=== PATIENT | female | born 1980 | race African-American/Black ===

== ENCOUNTER 2021-08-26 15:30 | Inpatient (IN) | payer BC, OTHER ==
[2021-08-26 19:24] VITALS: BMI 31.8
[2021-08-26] MEDS ORDERED: ACETAMINOPHEN 325 MG TABLET (FP) PO PRN ×2 (20:14)
[2021-08-26] MEDS ORDERED: IBUPROFEN 400 MG TABLET (FP) PO PRN (20:14)
[2021-08-26] MEDS ORDERED: MAG HYDROX/AL HYDROX/SIMETH 30 ML UNIT-DOSE CUP PO PRN (20:14)
[2021-08-26] MEDS ORDERED: hydrOXYzine PAMOATE 25 MG CAPSULE (FP) PO PRN (20:14)
[2021-08-26] MEDS ORDERED: MENTHOL/PHENOL 1 EACH UD MM PRN (20:14)
[2021-08-26] MEDS ORDERED: MAGNESIUM HYDROX 2400MG/30ML ORAL SUSPENSION 30 ML CUP PO PRN (20:14)
[2021-08-26] MEDS ORDERED: guaiFENesin 200 MG/10 ML 10 ML UNIT-DOSE CUPS PO PRN (20:14)
[2021-08-26] MEDS ORDERED: LOPERAMIDE HCL 2 MG CAPSULE PO PRN (20:14)
[2021-08-26] MEDS ORDERED: DICYCLOMINE HCL 10 MG CAPSULE PO PRN (20:14)
[2021-08-26] MEDS ORDERED: BISMUTH SUBSALICYLATE 524 MG/30 ML PO PRN (20:14)
[2021-08-26] MEDS ORDERED: ONDANSETRON *ODT* 4 MG TABLET SL PRN (20:14)
[2021-08-26] MEDS ORDERED: P-EPHED 60MG/TRIPROLIDI 2.5MG TABLET PO PRN (20:14)
[2021-08-26] MEDS ORDERED: NICOTINE 10 MG CARTRIDGE (INHALER) IH PRN (20:14)
[2021-08-26] MEDS ORDERED: METHOCARBAMOL 500 MG TABLET PO PRN (20:14)
[2021-08-26] MEDS ORDERED: MAGNESIUM CITRATE 300 ML BOTTLE PO PRN (20:14)
[2021-08-27] MEDS: MELATONIN 5 MG TABLETS PO SCH ×2 (00:51→22:18)
[2021-08-27] MEDS: THIAMINE HCL 100 MG TABLET (FP) PO SCH ×2 (00:51→22:18)
[2021-08-27] MEDS: PRENATAL VITAMINS W/ FOLIC ACID TABLET (FP) PO SCH (10:36)
[2021-08-27] MEDS: NICOTINE 14 MG/24 HOURS TOPICAL PATCH TD SCH (10:38)
[2021-08-27 12:19] LABS: HEMATOCRIT 37.8 % (32.4-45.2); HEMOGLOBIN 12.8 GM/dL (10.7-15.3); MCH 28.7 pg (25.7-33.7); MCHC 33.7 g/dl (32.0-36.0); MEAN CELL VOLUME 85.2 fl (80-96); PLATELET COUNT 218 10^3/uL (134-434); RBC 4.44 M/mm3 (3.60-5.2); RDW 14.1 % (11.6-15.6); WHITE BLOOD COUNT 6.4 K/mm3 (4.0-10.0)
[2021-08-27 12:40] LABS: CALCIUM 9.1 mg/dL (8.5-10.1)
[2021-08-27 12:41] LABS: ALBUMIN 3.3 g/dl (3.4-5.0); BLOOD UREA NITROGEN 9.8 mg/dL (7-18)
[2021-08-27 12:46] LABS: BILIRUBIN,TOTAL 0.4 mg/dL (0.2-1)
[2021-08-27] MEDS ORDERED: DIVALPROEX SODIUM 500 MG TABLET E.C. PO SCH (22:00)
[2021-08-27] MEDS: HALOPERIDOL 5 MG TABLET PO SCH (23:43)
[2021-08-28 06:06] LABS: SARS-CoV-2 NAA Not Detected (Not Detected)
[2021-08-28 08:57] VITALS: BP 102/64; PULSE 73; TEMP 97.1
[2021-08-28] MEDS ORDERED: DIVALPROEX SODIUM 250 MG TABLET E.C. PO SCH (10:00)
[2021-08-28] MEDS: PRENATAL VITAMINS W/ FOLIC ACID TABLET (FP) PO SCH (10:19)
[2021-08-28] MEDS: HALOPERIDOL 5 MG TABLET PO SCH (10:19)
[2021-08-28] MEDS: NICOTINE 14 MG/24 HOURS TOPICAL PATCH TD SCH (10:19)
== END 2021-08-28 10:33 | disposition other institution (70) | DRG 897 ==
LOC: YASAS 15:30 → Y3N 22:41
PROVIDERS: ADMIT Allergy & Immunology; ATTEND Allergy & Immunology
PROC: HZ2ZZZZ Detoxification Services for Substance Abuse Treatment (ICD-10-PCS; principal; 2021-08-26)
DX: F10.230 Alcohol dependence with withdrawal, uncomplicated (principal); F14.20 Cocaine dependence, uncomplicated; F12.20 Cannabis dependence, uncomplicated; F17.210 Nicotine dependence, cigarettes, uncomplicated; F25.0 Schizoaffective disorder, bipolar type; F19.24 Other psychoactive substance dependence with psychoactive substance-induced mood disorder; Z88.8 Allergy status to other drugs, medicaments and biological substances; Z56.0 Unemployment, unspecified
CPT/HCPCS: 36415; 80053; 80164; 85027; 86780; 93005; 93010; C9803; U0003; U0005

== ENCOUNTER 2021-08-28 11:49 | Inpatient (IN) | payer BC, OTHER ==
[2021-08-28] MEDS ORDERED: MAG HYDROX/AL HYDROX/SIMETH 30 ML UNIT-DOSE CUP PO PRN (14:52)
[2021-08-28] MEDS ORDERED: ACETAMINOPHEN 325 MG TABLET (FP) PO PRN (14:52)
[2021-08-28] MEDS ORDERED: MAGNESIUM CITRATE 300 ML BOTTLE PO PRN (14:52)
[2021-08-28] MEDS ORDERED: MENTHOL/PHENOL 1 EACH UD MM PRN (14:52)
[2021-08-28] MEDS ORDERED: IBUPROFEN 400 MG TABLET (FP) PO PRN (14:52)
[2021-08-28] MEDS ORDERED: guaiFENesin 200 MG/10 ML 10 ML UNIT-DOSE CUPS PO PRN (14:52)
[2021-08-28] MEDS ORDERED: P-EPHED 60MG/TRIPROLIDI 2.5MG TABLET PO PRN (14:52)
[2021-08-28] MEDS ORDERED: LOPERAMIDE HCL 2 MG CAPSULE PO PRN (14:52)
[2021-08-28] MEDS ORDERED: MAGNESIUM HYDROX 2400MG/30ML ORAL SUSPENSION 30 ML CUP PO PRN (14:52)
[2021-08-28] MEDS: hydrOXYzine PAMOATE 25 MG CAPSULE (FP) PO SCH ×2 (18:11→21:08)
[2021-08-28] MEDS: NICOTINE 10 MG CARTRIDGE (INHALER) IH PRN ×2 (18:17→22:28)
[2021-08-28] MEDS: THIAMINE HCL 100 MG TABLET (FP) PO SCH (21:08)
[2021-08-28] MEDS: HALOPERIDOL 5 MG TABLET PO SCH (21:08)
[2021-08-28] MEDS: DIVALPROEX SODIUM 500 MG TABLET E.C. PO SCH (21:08)
[2021-08-28] MEDS: MELATONIN 5 MG TABLETS PO SCH (21:08)
[2021-08-29] MEDS: hydrOXYzine PAMOATE 25 MG CAPSULE (FP) PO SCH ×5 (06:07→21:05)
[2021-08-29] MEDS: NICOTINE 10 MG CARTRIDGE (INHALER) IH PRN ×3 (09:06→21:07)
[2021-08-29] MEDS: PRENATAL VITAMINS W/ FOLIC ACID TABLET (FP) PO SCH (11:07)
[2021-08-29] MEDS: DIVALPROEX SODIUM 250 MG TABLET E.C. PO SCH (11:07)
[2021-08-29] MEDS: HALOPERIDOL 5 MG TABLET PO SCH ×2 (11:07→21:05)
[2021-08-29] MEDS: NICOTINE 7 MG/24 HOURS TOPICAL PATCH TD SCH (11:08)
[2021-08-29 13:11] LABS: HIV INTERPRETATION NEGATIVE (NEGATIVE)
[2021-08-29] MEDS: DIVALPROEX SODIUM 500 MG TABLET E.C. PO SCH (21:05)
[2021-08-29] MEDS: THIAMINE HCL 100 MG TABLET (FP) PO SCH (21:05)
[2021-08-29] MEDS: MELATONIN 5 MG TABLETS PO SCH (21:05)
[2021-08-30] MEDS: hydrOXYzine PAMOATE 25 MG CAPSULE (FP) PO SCH ×2 (06:45→11:17)
[2021-08-30] MEDS: PRENATAL VITAMINS W/ FOLIC ACID TABLET (FP) PO SCH (11:16)
[2021-08-30] MEDS: DIVALPROEX SODIUM 250 MG TABLET E.C. PO SCH (11:17)
[2021-08-30] MEDS: NICOTINE 7 MG/24 HOURS TOPICAL PATCH TD SCH (11:17)
[2021-08-30] MEDS: HALOPERIDOL 5 MG TABLET PO SCH ×2 (11:17→21:12)
[2021-08-30] MEDS: NICOTINE 10 MG CARTRIDGE (INHALER) IH PRN ×2 (12:22→18:08)
[2021-08-30] MEDS ORDERED: hydrOXYzine PAMOATE 25 MG CAPSULE (FP) PO PRN (12:43)
[2021-08-30] MEDS: MELATONIN 5 MG TABLETS PO SCH (21:12)
[2021-08-30] MEDS: cloZAPine 25 MG TABLET PO SCH (21:12)
[2021-08-30] MEDS: THIAMINE HCL 100 MG TABLET (FP) PO SCH (21:12)
[2021-08-30] MEDS: DIVALPROEX SODIUM 500 MG TABLET E.C. PO SCH (21:12)
[2021-08-31] MEDS: PRENATAL VITAMINS W/ FOLIC ACID TABLET (FP) PO SCH (10:38)
[2021-08-31] MEDS: DIVALPROEX SODIUM 250 MG TABLET E.C. PO SCH (10:38)
[2021-08-31] MEDS: NICOTINE 7 MG/24 HOURS TOPICAL PATCH TD SCH (10:38)
[2021-08-31] MEDS: HALOPERIDOL 5 MG TABLET PO SCH ×2 (10:38→22:12)
[2021-08-31 11:40] LABS: BASO % 0.8 % (0-2.0); EOS % 4.8 % (0-4.5); HEMATOCRIT 39.4 % (32.4-45.2); HEMOGLOBIN 13.3 GM/dL (10.7-15.3); LYMPH % 44.2 % (8-40); MCH 28.8 pg (25.7-33.7); MCHC 33.8 g/dl (32.0-36.0); MEAN CELL VOLUME 85.2 fl (80-96); MEAN PLT VOLUME 9.1 fl (7.5-11.1); MONO % 9.1 % (3.8-10.2); NEUT % 41.1 % (42.8-82.8); PLATELET COUNT 230 10^3/uL (134-434); RBC 4.62 M/mm3 (3.60-5.2); RDW 13.7 % (11.6-15.6); WHITE BLOOD COUNT 5.1 K/mm3 (4.0-10.0)
[2021-08-31] MEDS: NICOTINE 10 MG CARTRIDGE (INHALER) IH PRN (18:27)
[2021-08-31] MEDS: MELATONIN 5 MG TABLETS PO SCH (22:12)
[2021-08-31] MEDS: DIVALPROEX SODIUM 500 MG TABLET E.C. PO SCH (22:12)
[2021-08-31] MEDS: THIAMINE HCL 100 MG TABLET (FP) PO SCH (22:12)
[2021-08-31] MEDS: cloZAPine 25 MG TABLET PO SCH (22:13)
[2021-09-01] MEDS: DIVALPROEX SODIUM 250 MG TABLET E.C. PO SCH (10:53)
[2021-09-01] MEDS: HALOPERIDOL 5 MG TABLET PO SCH ×2 (10:53→22:13)
[2021-09-01] MEDS: NICOTINE 7 MG/24 HOURS TOPICAL PATCH TD SCH (10:53)
[2021-09-01] MEDS: PRENATAL VITAMINS W/ FOLIC ACID TABLET (FP) PO SCH (10:53)
[2021-09-01] MEDS: NICOTINE POLACRILEX 2 MG GUM BUC PRN ×3 (16:06→23:05)
[2021-09-01] MEDS: MELATONIN 5 MG TABLETS PO SCH (22:12)
[2021-09-01] MEDS: THIAMINE HCL 100 MG TABLET (FP) PO SCH (22:12)
[2021-09-01] MEDS: cloZAPine 25 MG TABLET PO SCH (22:13)
[2021-09-01] MEDS: DIVALPROEX SODIUM 500 MG TABLET E.C. PO SCH (22:13)
[2021-09-02] MEDS: PRENATAL VITAMINS W/ FOLIC ACID TABLET (FP) PO SCH (09:40)
[2021-09-02] MEDS: DIVALPROEX SODIUM 250 MG TABLET E.C. PO SCH (09:40)
[2021-09-02] MEDS: NICOTINE 7 MG/24 HOURS TOPICAL PATCH TD SCH (09:41)
[2021-09-02] MEDS: HALOPERIDOL 5 MG TABLET PO SCH ×2 (09:41→21:18)
[2021-09-02] MEDS: NICOTINE POLACRILEX 2 MG GUM BUC PRN ×4 (09:42→21:20)
[2021-09-02] MEDS: MELATONIN 5 MG TABLETS PO SCH (21:18)
[2021-09-02] MEDS: THIAMINE HCL 100 MG TABLET (FP) PO SCH (21:18)
[2021-09-02] MEDS: DIVALPROEX SODIUM 500 MG TABLET E.C. PO SCH (21:18)
[2021-09-03] MEDS: NICOTINE POLACRILEX 2 MG GUM BUC PRN ×3 (08:59→20:14)
[2021-09-03] MEDS: NICOTINE 7 MG/24 HOURS TOPICAL PATCH TD SCH (09:00)
[2021-09-03] MEDS: DIVALPROEX SODIUM 250 MG TABLET E.C. PO SCH (09:00)
[2021-09-03] MEDS: HALOPERIDOL 5 MG TABLET PO SCH ×2 (09:00→21:25)
[2021-09-03] MEDS: PRENATAL VITAMINS W/ FOLIC ACID TABLET (FP) PO SCH (09:01)
[2021-09-03] MEDS: DIVALPROEX SODIUM 500 MG TABLET E.C. PO SCH (21:23)
[2021-09-03] MEDS: THIAMINE HCL 100 MG TABLET (FP) PO SCH (21:24)
[2021-09-03] MEDS: MELATONIN 5 MG TABLETS PO SCH (21:24)
[2021-09-03] MEDS ORDERED: cloZAPine 25 MG TABLET PO SCH (22:00)
[2021-09-04] MEDS: HALOPERIDOL 5 MG TABLET PO SCH ×2 (09:10→21:15)
[2021-09-04] MEDS: NICOTINE 7 MG/24 HOURS TOPICAL PATCH TD SCH (09:10)
[2021-09-04] MEDS: DIVALPROEX SODIUM 250 MG TABLET E.C. PO SCH (09:10)
[2021-09-04] MEDS: PRENATAL VITAMINS W/ FOLIC ACID TABLET (FP) PO SCH (09:12)
[2021-09-04] MEDS: NICOTINE POLACRILEX 2 MG GUM BUC PRN ×5 (09:12→21:16)
[2021-09-04] MEDS: BENZTROPINE MESYLATE 1 MG TABLET PO SCH (21:14)
[2021-09-04] MEDS: DIVALPROEX SODIUM 500 MG TABLET E.C. PO SCH (21:15)
[2021-09-04] MEDS: THIAMINE HCL 100 MG TABLET (FP) PO SCH (21:15)
[2021-09-04] MEDS ORDERED: cloZAPine 100 MG TABLET PO ONE (22:00)
[2021-09-05 07:55] VITALS: TEMP 97.4
[2021-09-05] MEDS: DIVALPROEX SODIUM 250 MG TABLET E.C. PO SCH (10:51)
[2021-09-05] MEDS: HALOPERIDOL 5 MG TABLET PO SCH ×2 (10:51→21:12)
[2021-09-05] MEDS: BENZTROPINE MESYLATE 1 MG TABLET PO SCH ×2 (10:51→21:12)
[2021-09-05] MEDS: NICOTINE 7 MG/24 HOURS TOPICAL PATCH TD SCH (10:52)
[2021-09-05] MEDS: PRENATAL VITAMINS W/ FOLIC ACID TABLET (FP) PO SCH (10:52)
[2021-09-05] MEDS: NICOTINE POLACRILEX 2 MG GUM BUC PRN ×6 (10:53→22:30)
[2021-09-05 16:11] LABS: NORCLOZAPINE <20 ng/mL (Not Estab.)
[2021-09-05] MEDS: DIVALPROEX SODIUM 500 MG TABLET E.C. PO SCH (21:12)
[2021-09-05] MEDS: THIAMINE HCL 100 MG TABLET (FP) PO SCH (21:12)
[2021-09-05] MEDS ORDERED: traZODone HCL 50 MG TABLET (FP) PO SCH (22:00)
[2021-09-05] MEDS ORDERED: cloZAPine 25 MG TABLET PO SCH (22:00)
[2021-09-05 22:03] VITALS: BP 121/66; PULSE 77
[2021-09-06] MEDS ORDERED: cloZAPine 25 MG TABLET PO SCH
[2021-09-06] MEDS: HALOPERIDOL 5 MG TABLET PO SCH (09:43)
[2021-09-06] MEDS: PRENATAL VITAMINS W/ FOLIC ACID TABLET (FP) PO SCH (09:43)
[2021-09-06] MEDS: BENZTROPINE MESYLATE 1 MG TABLET PO SCH (09:43)
[2021-09-06] MEDS: DIVALPROEX SODIUM 250 MG TABLET E.C. PO SCH (09:43)
[2021-09-06] MEDS: NICOTINE POLACRILEX 2 MG GUM BUC PRN ×2 (09:44→12:45)
[2021-09-06] MEDS: NICOTINE 7 MG/24 HOURS TOPICAL PATCH TD SCH (09:45)
[2021-09-06] MEDS ORDERED: CLOZAPINE 25 MG PO SCH (22:00)
== END 2021-09-06 13:15 | disposition left against medical advice (07) | DRG 894 ==
LOC: YASAS 11:49 → Y5N 11:50
PROVIDERS: ADMIT Allergy & Immunology; ATTEND Allergy & Immunology
PROC: HZ42ZZZ Group Counseling for Substance Abuse Treatment, Cognitive-Behavioral (ICD-10-PCS; principal; 2021-08-28)
DX: F10.20 Alcohol dependence, uncomplicated (principal); F14.20 Cocaine dependence, uncomplicated; F12.20 Cannabis dependence, uncomplicated; F17.210 Nicotine dependence, cigarettes, uncomplicated; F25.0 Schizoaffective disorder, bipolar type
CPT/HCPCS: 36415; 85025; 87389; C9803; G0480; U0003; U0005